=== PATIENT | female | born 1985 | race Caucasian/White ===

== ENCOUNTER 2017-06-19 02:57 | Emergency (ER) | payer OTHER ==
[2017-06-19] MEDS ORDERED: FAMOTIDINE 20 MG TABLET PO ONE (04:06)
[2017-06-19] MEDS ORDERED: PREDNISONE 20 MG TABLET PO ONE (04:06)
[2017-06-19] MEDS ORDERED: TRAMADOL HCL 50 MG TABLET PO ONE (04:07)
[2017-06-19] MEDS ORDERED: CLINDAMYCIN HCL 150 MG CAPSULE PO ONE (04:18)
[2017-06-19] MEDS ORDERED: DIPHENHYDRAMINE HCL 25 MG CAPSULE PO ONE (04:18)
--- NOTE | 2017-06-19 04:18 | ER Document Report ---
ED General - General Chief Complaint: Rash Stated Complaint: POSSIBLE RASH Time Seen by Provider: 06/19/17 04:06 Notes: Patient is a pleasant 32-year-old female presents with complaint of rash. She developed poison gabi type rash after pulling down on fine outside that is apparently poison gabi. Saw her doctor yesterday was given prednisone 40 mg for 5 days. She has been using Benadryl. She has been scratching it. She says that the rational barrera and is painful. She also says it itches and she is miserable and cannot sleep. No other complaints at this time. She is otherwise healthy and does not chronically take medications. TRAVEL OUTSIDE OF THE [place] IN LAST 30 DAYS: No - Related Data Allergies/Adverse Reactions: Penicillins Allergy (Verified 06/19/17 03:08) Past Medical History - Social History Smoking Status: Never Smoker Frequency of alcohol use: None Drug Abuse: None Family History: Reviewed & Not Pertinent Review of Systems - Review of Systems Notes: My Normal Review Basic REVIEW OF SYSTEMS: CONSTITUTIONAL : Denies fever, chills, or sweats. Denies recent illness. RESPIRATORY: Denies cough, cold, or chest congestion. Denies shortness of breath, difficulty breathing, or wheezing. GASTROINTESTINAL: Denies abdominal pain. Denies nausea, vomiting, or diarrhea. Denies constipation. Last BM: MUSCULOSKELETAL: Denies neck or back pain or joint pain or swelling. SKIN: Rash on upper and lower extremities NEUROLOGICAL: Denies altered mental status or loss of consciousness. ALL OTHER SYSTEMS REVIEWED AND NEGATIVE. Physical Exam - Vital signs Vitals: Temp Pulse Resp BP Pulse Ox 97.5 F 58 L 14 100/63 100 06/19/17 03:11 06/19/17 03:11 06/19/17 03:11 06/19/17 03:11 06/19/17 03:11 - Notes Notes: General Appearance: Well nourished, alert, cooperative, no acute distress, moderate obvious discomfort. Vitals: reviewed, See vital signs table. Eyes: PERRL, EOMI, Conjuctiva clear Mouth: No decreasd moisture Extremities: good pulses in all extremities, patient has erythematous blanchable rash over upper and lower extremities. No rash over parts of the body that were covered with closed. Similar areas are excoriated from scratching she does have some clear drainage coming from these areas. No obvious abscess. No areas of fluctuance. Skin: warm, dry, appropriate color, poison gabi like rash. Neuro: speech clear, oriented x 3, normal affect, responds appropriately to questions. Course - Re-evaluation Re-evalutation: 06/19/17 06:19 I will change patient's prednisone course to a taper starting at 60 mg. Her to take Benadryl. Also give her Pepcid. I will give her Ultram to help with pain. Also will place on clindamycin as she has several excoriated lesions from scratching and my concern is that this could start become infected. I strongly encouraged her return to ER immediately if she has worsening rash, fevers, or she feels unwell. Patient agrees with plan will be discharged home. Dictation of this chart was performed using voice recognition software; therefore, there may be some unintended grammatical errors. - Vital Signs Vital signs: Temp Pulse Resp BP Pulse Ox 97.5 F 78 18 105/64 98 06/19/17 03:11 06/19/17 04:34 06/19/17 04:34 06/19/17 04:34 06/19/17 04:34 Discharge - Discharge Clinical Impression: Poison gabi Condition: Good Disposition: HOME, SELF-CARE Additional Instructions: Please return to the ER immediately if you develop spreading redness, fevers, or feel that you are worsening. Please so not take both prescriptions of Prednisone. Hold the prescription given to you by your doctor and start the new one. Please do not drive or operate machinery when taking the Ultram. Prescriptions: Tramadol HCl [Ultram 50 mg Tablet] 50 mg PO Q6HP PRN #14 tablet PRN Reason: Clindamycin HCl 300 mg PO ASDIR #56 capsule Prednisone 10 mg PO ASDIR #42 tablet
[2017-06-19 04:42] VITALS: BP 105/64
== END 2017-06-19 04:44 | disposition home or self-care (01) ==
LOC: ER 02:57
DX: L23.7 Allergic contact dermatitis due to plants, except food (principal); Z88.0 Allergy status to penicillin
CPT/HCPCS: 99282; J7512